=== PATIENT | female | born 1935 | race Caucasian/White ===

== ENCOUNTER 2020-07-03 07:42 | Outpatient (CLI) | payer OTHER | END 2020-07-03 07:52 | disposition home or self-care (01) | LOC: RX STUDY 07:42 | PROVIDERS: ATTEND Internal Medicine Gastroenterology | DX: K22.8 Other specified diseases of esophagus (principal); K44.9 Diaphragmatic hernia without obstruction or gangrene; K21.9 Gastro-esophageal reflux disease without esophagitis; R13.19 Other dysphagia ==